=== PATIENT | male | born 1985 | race Caucasian/White ===

== ENCOUNTER 2018-05-10 01:58 | Emergency (ER) | payer SELFPAY ==
[2018-05-10] MEDS ORDERED: KETOROLAC 30 MG/ML INJ ONE (02:58)
[2018-05-10] MEDS ORDERED: NA CHLORIDE 0.9% 1,000 ML ONE (02:58)
--- NOTE | 2018-05-10 03:30 | ER ---
Nurse's Notes [facility] Name: Brooks Guzman Age: 33 yrs Sex: Male : 1985 Arrival Date: 05/10/2018 Time: 01:58 Bed 20 Private MD: Diagnosis: Colic-renal Presentation: 05/10 01:59 Presenting complaint: EMS states: Called to [facility], pt complaining of right flank pain ea that radiates to his stomach. Pt reported he was at [facility] about a week ago and was diagnosed with kidney stones. Transition of care: patient was not received from another setting of care. Onset of symptoms was May 10, 2018. Risk Assessment: Do you want to hurt yourself or someone else? Patient reports no desire to harm self or others. Initial Sepsis Screen: Does the patient meet any 2 criteria? No. Patient's initial sepsis screen is negative. Does the patient have a suspected source of infection? No. Patient's initial sepsis screen is negative. Care prior to arrival: None. 01:59 Method Of Arrival: EMS: [facility] ea 01:59 Acuity: TAMMI 3 ea Triage Assessment: 02:04 General: Appears uncomfortable, Behavior is calm, cooperative, appropriate for age. ea Pain: Complains of pain in right flank pain Pain radiates to abdomen Pain currently is 7 out of 10 on a pain scale. Quality of pain is described as aching, Pain began 30 min ago. EENT: No signs and/or symptoms were reported regarding the EENT system. Neuro: Level of Consciousness is awake, alert, obeys commands, Oriented to person, place, time, situation. Cardiovascular: Heart tones S1 S2 present Patient's skin is warm and dry. Respiratory: Airway is patent Respiratory effort is even, unlabored, Respiratory pattern is regular, symmetrical, Breath sounds are clear bilaterally. GI: Abdomen is non-distended. : Reports burning with urination. Derm: Skin is pink, warm \T\ dry. Musculoskeletal: Circulation, motion, and sensation intact. Historical: - Allergies: 02:04 No Known Allergies; ea - Home Meds: 02:04 None [Active]; ea - PMHx: 02:04 None; ea - PSHx: 02:04 None; ea - Immunization history:: Adult Immunizations up to date. - Social history:: Smoking status: Patient uses tobacco products, smokes one-half pack cigarettes per day. - Ebola Screening: : No symptoms or risks identified at this time. Screenin:07 Abuse screen: Denies threats or abuse. Nutritional screening: No deficits noted. ea Tuberculosis screening: No symptoms or risk factors identified. Fall Risk None identified. Assessment: 03:00 Reassessment: Patient and/or family updated on plan of care and expected duration. Pain ea level reassessed. Patient is alert, oriented x 3, equal unlabored respirations, skin warm/dry/pink. 03:45 Reassessment: Patient and/or family updated on plan of care and expected duration. Pain ea level reassessed. Patient is alert, oriented x 3, equal unlabored respirations, skin warm/dry/pink. Discharge instructions given to patient, verbalized the understanding of instruction. Vital Signs: 02:06 BP 142 / 97; Pulse 94; Resp 18; Temp 98.2(O); Pulse Ox 98% on R/A; Weight 72.57 kg; ea Height 6 ft. 0 in. (182.88 cm); Pain 8/10; 03:30 BP 129 / 78; Pulse 72; Resp 18; Temp 98; Pulse Ox 98% ; Pain 2/10; ea 02:06 Body Mass Index 21.70 (72.57 kg, 182.88 cm) ea ED Course: 01:58 Patient arrived in ED. ea 02:03 Triage completed. ea 02:07 Patient has correct armband on for positive identification. Bed in low position. Call ea light in reach. Side rails up X2. 02:08 Arm band placed on right wrist. Patient placed in an exam room, on a stretcher, on ea pulse oximetry. 02:19 Dain Latham MD is Attending Physician. gs 02:45 Inserted saline lock: 18 gauge in right antecubital area, using aseptic technique. ea 02:48 Urszula Tidwell, NINFA is Primary Nurse. ea 03:28 Emily Carrillo MD is Referral Physician. gs 03:45 No provider procedures requiring assistance completed. IV discontinued, intact, ea bleeding controlled, No redness/swelling at site. Pressure dressing applied. Administered Medications: 03:00 Drug: NS 0.9% 1000 ml Route: IV; Rate: 1 bolus; Site: right antecubital; ea 03:00 Drug: TORadol 30 mg Route: IVP; Site: right antecubital; ea 03:26 Follow up: Response: No adverse reaction; Pain is decreased ea Outcome: 03:29 Discharge ordered by . 03:57 Discharged to [employer] ea 03:57 Condition: improved 03:57 Discharge instructions given to patient, Instructed on discharge instructions, follow up and referral plans. Demonstrated understanding of instructions, follow-up care. 03:59 Patient left the ED. ea Signatures: Urszula Tidwell RN RN ea Starr, Gregory, MD MD
--- NOTE | 2018-05-10 03:30 | EDPHYS ---
Physician Documentation [facility] Name: Brooks Guzman Age: 33 yrs Sex: Male : 1985 Arrival Date: 05/10/2018 Time: 01:58 Bed 20 Private MD: ED Physician Dain Latham HPI: 05/10 03:25 This 33 yrs old Male presents to ER via EMS with complaints of Flank Pain. gs 03:25 The patient complains of pain in the right low back. The pain does not radiate. Onset: gs The symptoms/episode began/occurred 1 week(s) ago, and became persistent dx with 3 mm kidney stone. Modifying factors: The symptoms are alleviated by nothing. the symptoms are aggravated by nothing. Associated signs and symptoms: Pertinent negatives: dizziness, dysuria. Severity of pain: At its worst the pain was moderate in the emergency department the pain is unchanged. The patient has experienced similar episodes in the past, a few times. The patient has been recently seen by a physician: in the hospital. Historical: - Allergies: 02:04 No Known Allergies; ea - Home Meds: 02:04 None [Active]; ea - PMHx: 02:04 None; ea - PSHx: 02:04 None; ea - Immunization history:: Adult Immunizations up to date. - Social history:: Smoking status: Patient uses tobacco products, smokes one-half pack cigarettes per day. - Ebola Screening: : No symptoms or risks identified at this time. ROS: 03:25 All other systems are negative. gs Exam: 03:25 Head/Face: Normocephalic, atraumatic. Eyes: Pupils equal round and reactive to light, gs extra-ocular motions intact. Lids and lashes normal. Conjunctiva and sclera are non-icteric and not injected. Cornea within normal limits. Periorbital areas with no swelling, redness, or edema. ENT: Nares patent. No nasal discharge, no septal abnormalities noted. Tympanic membranes are normal and external auditory canals are clear. Oropharynx with no redness, swelling, or masses, exudates, or evidence of obstruction, uvula midline. Mucous membranes moist. Neck: Trachea midline, no thyromegaly or masses palpated, and no cervical lymphadenopathy. Supple, full range of motion without nuchal rigidity, or vertebral point tenderness. No Meningismus. Chest/axilla: Normal chest wall appearance and motion. Nontender with no deformity. No lesions are appreciated. Cardiovascular: Regular rate and rhythm with a normal S1 and S2. No gallops, murmurs, or rubs. Normal PMI, no JVD. No pulse deficits. Respiratory: Lungs have equal breath sounds bilaterally, clear to auscultation and percussion. No rales, rhonchi or wheezes noted. No increased work of breathing, no retractions or nasal flaring. Abdomen/GI: Soft, non-tender, with normal bowel sounds. No distension or tympany. No guarding or rebound. No evidence of tenderness throughout. Back: No spinal tenderness. No costovertebral tenderness. Full range of motion. Skin: Warm, dry with normal turgor. Normal color with no rashes, no lesions, and no evidence of cellulitis. MS/ Extremity: Pulses equal, no cyanosis. Neurovascular intact. Full, normal range of motion. Neuro: Awake and alert, GCS 15, oriented to person, place, time, and situation. Cranial nerves II-XII grossly intact. Motor strength 5/5 in all extremities. Sensory grossly intact. Cerebellar exam normal. Normal gait. 03:25 Constitutional: The patient appears alert, awake. Vital Signs: 02:06 BP 142 / 97; Pulse 94; Resp 18; Temp 98.2(O); Pulse Ox 98% on R/A; Weight 72.57 kg; ea Height 6 ft. 0 in. (182.88 cm); Pain 8/10; 03:30 BP 129 / 78; Pulse 72; Resp 18; Temp 98; Pulse Ox 98% ; Pain 2/10; ea 02:06 Body Mass Index 21.70 (72.57 kg, 182.88 cm) ea MDM: 02:39 Patient medically screened. gs 03:25 Data reviewed: vital signs, nurses notes. Response to treatment: the patient's symptoms gs have markedly improved after treatment, and as a result, I will discharge patient. 03:30 Counseling: I had a detailed discussion with the patient and/or guardian regarding: the gs presence of at least one elevated blood pressure reading (>120/80) during this emergency department visit. 05/10 02:51 Order name: Urine Dipstick--Ancillary (enter results) ms 05/10 02:40 Order name: Urine Dipstick-Ancillary (obtain specimen); Complete Time: 02:48 gs Administered Medications: 03:00 Drug: NS 0.9% 1000 ml Route: IV; Rate: 1 bolus; Site: right antecubital; ea 03:00 Drug: TORadol 30 mg Route: IVP; Site: right antecubital; ea 03:26 Follow up: Response: No adverse reaction; Pain is decreased ea Disposition: 05/10/18 03:29 Discharged to Home. Impression: Colic - renal. - Condition is Stable. - Discharge Instructions: Kidney Stones, [id number]. - Medication Reconciliation Form, Thank You Letter, Antibiotic Education, Prescription Opioid Use form. - Follow up: Emily Carrillo MD; When: 2 - 3 days; Reason: Re-evaluation by your physician. Signatures: Dispatcher [employer] Urszula Morrison RN RN Dain Ybarra MD MD gs Corrections: (The following items were deleted from the chart) 03:59 03:29 05/10/2018 03:29 Discharged to Home. Impression: Colic - renal. Condition is ea Stable. Forms are Medication Reconciliation Form, Thank You Letter, Antibiotic Education, Prescription Opioid Use. Follow up: Emily Carrillo; When: 2 - 3 days; Reason: Re-evaluation by your physician. gs
[2018-05-10 04:04] LABS: Urine Blood NEGATIVE (NEG); Urine Glucose NEGATIVE (NEG); Urine Protein NEGATIVE (NEG); Urine Specific Gravity >1.030 (1.005-1.030); Urine pH 5.5 (5.0-7.0)
== END 2018-05-10 03:59 | disposition home or self-care (01) ==
LOC: ER 01:58
DX: N23 Unspecified renal colic (principal); F17.210 Nicotine dependence, cigarettes, uncomplicated
CPT/HCPCS: 81003; 96374; 99284; J7030